=== PATIENT | female | born 1960 | race Caucasian/White ===

== ENCOUNTER 2016-11-10 08:55 | Inpatient (IN) | payer MEDICAID, OTHER ==
[~2016-11-10] VITALS: Ht 157.5 cm; Wt 60.4 kg
[~2016-11-10 08:55] MED LIST: DIVA500T52 PO; DOXE100C4 PO; MULT-71 PO; RISP4 PO; TRAZ-147 PO
[2016-11-10] MEDS ORDERED: ATOR40TA71 PO (09:10)
[2016-11-10] MEDS ORDERED: RISP2TAB76 PO (09:10)
[2016-11-10] MEDS ORDERED: LEVO25TA9 PO (09:10)
[2016-11-10 09:36] LABS: BASOPHILS % (AUTO) 0.3 % (0.0-2.0); EOSINOPHILS % (AUTO) 0.4 % (1.0-6.0); HEMATOCRIT 39.9 % (36-46); HEMOGLOBIN 13.5 g/dL (12.0-16.0); LYMPHOCYTES # (AUTO) 1.9 K/uL (1.0-4.8); LYMPHOCYTES % (AUTO) 14.9 % (22.0-44.0); MEAN CORPUSCULAR HEMOGLOBIN 31.2 pg (26.0-34.0); MEAN CORPUSCULAR HGB CONC 33.8 G/dL (31.0-37.0); MEAN CORPUSCULAR VOLUME 92 fL (80-100); MONOCYTES # (AUTO) 0.5 K/uL (0.1-1.0); MONOCYTES % (AUTO) 3.6 % (2.0-9.0); NEUTROPHILS # (AUTO) 10.5 K/uL (1.8-7.7); NEUTROPHILS % (AUTO) 80.8 % (40.0-70.0); PLATELET COUNT (AUTO) 332 K/uL (150-450); RED BLOOD CELL COUNT(AUTO) 4.33 MIL/uL (4.00-5.20); RED CELL DISTRIBUTION WIDTH 13.1 % (11.5-14.5); WHITE BLOOD COUNT (AUTO) 13.1 K/uL (4.5-11.0)
[2016-11-10] MEDS ORDERED: LORazepam 2 MG TABLET PO ONE (09:45)
[2016-11-10] MEDS ORDERED: DiphenhydrAMINE HCL 25 MG CAPSULE PO ONE (09:45)
[2016-11-10] MEDS ORDERED: HALOPERIDOL 5 MG TABLET PO ONE (09:45)
[2016-11-10 09:48] LABS: ANION GAP 15 mmol/L (8-16); CALCIUM, TOTAL 9.2 mg/dL (8.8-10.5); CARBON DIOXIDE 22 mmol/L (22-29); CHLORIDE 96 mmol/L (98-107); CREATININE 1.13 mg/dL (0.60-1.30); GLOMERULAR FILTR. RATE CALC 50 mL/min (>60); POTASSIUM 3.3 mmol/L (3.5-5.1); SODIUM SERUM 133 mmol/L (136-145); UREA NITROGEN, BLOOD 19 mg/dL (7-18)
[2016-11-10 09:53] LABS: ALANINE AMINOTRANSFERASE 46 U/L (12-78); ALBUMIN 3.7 g/dL (3.4-5.0); ASPARTATE AMINOTRANSFERASE 34 U/L (15-37); BILIRUBIN,TOTAL 0.4 mg/dL (0.1-1.0); TOTAL PROTEIN, SERUM 8.2 g/dL (6.4-8.2)
[2016-11-10 09:55] LABS: GLUCOSE,POINT OF CARE 196 MG/DL (70-110)
[2016-11-10 11:45] VITALS: BP 143/101
[2016-11-10] MEDS ORDERED: POTASSIUM CHLORIDE 20 MEQ ER TABLET PO ONE (12:00)
[2016-11-10 13:28] VITALS: BP 123/66
[2016-11-10] MEDS ORDERED: INFLUENZA VIRUS VACCINE QVS 2016-17 (3YR+)/PF 60 MCG/0.5 ML SYRINGE IM ONE (13:45)
[2016-11-10 16:10] VITALS: BP 116/56
[2016-11-10] MEDS ORDERED: ZOLPIDEM TARTRATE 10 MG TABLET PO PRN (18:45)
[2016-11-10] MEDS ORDERED: HALOPERIDOL 5 MG TABLET PO PRN (18:45)
[2016-11-10] MEDS ORDERED: LORazepam 2 MG TABLET PO PRN (18:45)
[2016-11-11 06:37] VITALS: BP_SYST 103; BP_SYST 136; BP_DIAS 60; BP_DIAS 89
[2016-11-11] MEDS ORDERED: ACETAMINOPHEN 325 MG TABLET PO PRN (07:30)
[2016-11-11] MEDS ORDERED: IBUPROFEN 400 MG TABLET PO PRN (07:30)
[2016-11-11] MEDS: LEVOTHYROXINE SODIUM 25 MCG TABLET PO SCH (07:31)
[2016-11-11 08:20] VITALS: BP 139/79
[2016-11-11] MEDS: BENZTROPINE MESYLATE 0.5 MG TABLET PO SCH ×2 (09:00→17:00)
[2016-11-11] MEDS: HALOPERIDOL 5 MG TABLET PO SCH ×2 (09:00→17:00)
[2016-11-11 12:22] LABS: GLUCOSE,POINT OF CARE 111 MG/DL (70-110)
[2016-11-11] MEDS: AmLODIPine BESYLATE 2.5 MG TABLET PO SCH (12:40)
[2016-11-11 16:12] VITALS: BP 120/66
[2016-11-11] MEDS: ATORVASTATIN CALCIUM 40 MG TABLET PO SCH (21:00)
[2016-11-12] MEDS: LEVOTHYROXINE SODIUM 25 MCG TABLET PO SCH (06:30)
[2016-11-12 06:45] VITALS: BP 146/88
[2016-11-12 08:08] VITALS: BP 116/58
[2016-11-12] MEDS: AmLODIPine BESYLATE 2.5 MG TABLET PO SCH (09:00)
[2016-11-12] MEDS: BENZTROPINE MESYLATE 0.5 MG TABLET PO SCH ×2 (09:00→17:00)
[2016-11-12] MEDS: HALOPERIDOL 5 MG TABLET PO SCH ×2 (09:00→17:00)
[2016-11-12 16:57] VITALS: BP 146/82
[2016-11-12] MEDS: ATORVASTATIN CALCIUM 40 MG TABLET PO SCH (20:52)
[2016-11-13] MEDS: LEVOTHYROXINE SODIUM 25 MCG TABLET PO SCH (06:30)
[2016-11-13 07:23] VITALS: BP 132/86
[2016-11-13 08:10] VITALS: BP 158/85
[2016-11-13] MEDS: AmLODIPine BESYLATE 2.5 MG TABLET PO SCH (08:52)
[2016-11-13] MEDS: BENZTROPINE MESYLATE 0.5 MG TABLET PO SCH ×2 (08:52→17:00)
[2016-11-13] MEDS: HALOPERIDOL 5 MG TABLET PO SCH ×2 (08:52→17:00)
[2016-11-13] MEDS: ATORVASTATIN CALCIUM 40 MG TABLET PO SCH (21:00)
[2016-11-14] MEDS: LEVOTHYROXINE SODIUM 25 MCG TABLET PO SCH (06:30)
[2016-11-14] MEDS: HALOPERIDOL 5 MG TABLET PO SCH ×2 (09:00→17:00)
[2016-11-14] MEDS: AmLODIPine BESYLATE 2.5 MG TABLET PO SCH (09:00)
[2016-11-14] MEDS: BENZTROPINE MESYLATE 0.5 MG TABLET PO SCH ×2 (09:00→17:00)
[2016-11-14 16:10] VITALS: BP 128/86
[2016-11-14] MEDS: ATORVASTATIN CALCIUM 40 MG TABLET PO SCH (21:00)
[2016-11-15] MEDS: LEVOTHYROXINE SODIUM 25 MCG TABLET PO SCH (06:23)
[2016-11-15] MEDS: HALOPERIDOL 5 MG TABLET PO SCH ×3 (08:25→16:49)
[2016-11-15] MEDS: BENZTROPINE MESYLATE 0.5 MG TABLET PO SCH ×2 (08:25→16:54)
[2016-11-15] MEDS: AmLODIPine BESYLATE 2.5 MG TABLET PO SCH (08:25)
[2016-11-15 16:14] VITALS: BP 121/62
[2016-11-15] MEDS: ATORVASTATIN CALCIUM 40 MG TABLET PO SCH (20:23)
[2016-11-16] MEDS: LEVOTHYROXINE SODIUM 25 MCG TABLET PO SCH (06:30)
[2016-11-16] MEDS: AmLODIPine BESYLATE 2.5 MG TABLET PO SCH (09:00)
[2016-11-16] MEDS: HALOPERIDOL 5 MG TABLET PO SCH (09:03)
[2016-11-16] MEDS ORDERED: AMLO2.5T PO (12:58)
[2016-11-16] MEDS ORDERED: HALO5 PO (12:58)
== END 2016-11-16 15:10 | disposition home or self-care (01) | DRG 750 ==
LOC: EMS 08:57 → B3A 09:55
PROVIDERS: ADMIT Psychiatry & Neurology Psychiatry; ATTEND Psychiatry & Neurology Psychiatry
DX: F20.0 Paranoid schizophrenia (principal); E87.1 Hypo-osmolality and hyponatremia; F32.9 Major depressive disorder, single episode, unspecified; E78.5 Hyperlipidemia, unspecified; E03.9 Hypothyroidism, unspecified; D72.829 Elevated white blood cell count, unspecified; Z28.21 Immunization not carried out because of patient refusal; Z91.14 Patient's other noncompliance with medication regimen; Z79.899 Other long term (current) drug therapy
CPT/HCPCS: 82962; 99285; G0480

== ENCOUNTER 2017-04-07 08:09 | Emergency (ER) | payer MEDICAID, OTHER ==
[~2017-04-07] VITALS: Ht 157.5 cm; Wt 57.7 kg
[~2017-04-07 08:09] MED LIST changes: +AMLO2.5T PO; +ATOR40TA71 PO; -DIVA500T52 PO; -DOXE100C4 PO; +HALO5 PO; +LEVO25TA9 PO; -MULT-71 PO; -RISP4 PO; -TRAZ-147 PO
[2017-04-07 08:15] VITALS: BP 150/102
[2017-04-07] MEDS ORDERED: HydrOXYzine PAMOATE 50 MG CAPSULE PO ONE (08:30)
[2017-04-07] MEDS ORDERED: BACITRACIN 0.9 GM PACKET OINTMENT TP ONE (08:30)
== END 2017-04-07 08:45 | disposition home or self-care (01) ==
LOC: EMS 08:10
DX: S00.211A Abrasion of right eyelid and periocular area, initial encounter (principal); F20.9 Schizophrenia, unspecified; E78.00 Pure hypercholesterolemia, unspecified; F32.9 Major depressive disorder, single episode, unspecified; W19.XXXA Unspecified fall, initial encounter; Y93.89 Activity, other specified; Y92.89 Other specified places as the place of occurrence of the external cause; Y99.8 Other external cause status
CPT/HCPCS: 99283

== ENCOUNTER 2021-11-10 11:06 | Inpatient (IN) | payer OTHER ==
[~2021-11-10] VITALS: Ht 147.3 cm; Wt 90.4 kg
[2021-11-10 12:51] LABS: COVID AG,FIA SOURCE NASAL SWAB
[2021-11-10 13:46] LABS: BASOPHILS % (AUTO) 0.7 % (0.0-2.0); EOSINOPHILS % (AUTO) 0.4 % (1.0-6.0); HEMATOCRIT 42.7 % (36-46); HEMOGLOBIN 14.8 g/dL (12.0-16.0); LYMPHOCYTES # (AUTO) 0.9 K/uL (1.0-4.8); LYMPHOCYTES % (AUTO) 9.5 % (22.0-44.0); MEAN CORPUSCULAR HEMOGLOBIN 31.4 pg (26.0-34.0); MEAN CORPUSCULAR HGB CONC 34.8 G/dL (31.0-37.0); MEAN CORPUSCULAR VOLUME 90 fL (80-100); MONOCYTES % (AUTO) 10.3 % (2.0-9.0); NEUTROPHILS # (AUTO) 7.4 K/uL (1.8-7.7); NEUTROPHILS % (AUTO) 79.1 % (40.0-70.0); PLATELET COUNT (AUTO) 330 K/uL (150-450); RED BLOOD CELL COUNT(AUTO) 4.73 MIL/uL (4.00-5.20); RED CELL DISTRIBUTION WIDTH 13.3 % (11.5-14.5)
[2021-11-10 14:16] LABS: ANION GAP 10 mmol/L (8-16); CALCIUM, TOTAL 8.5 mg/dL (8.8-10.5); CARBON DIOXIDE 31 mmol/L (22-29); CHLORIDE 97 mmol/L (98-107); CREATININE 0.97 mg/dL (0.60-1.30); GLOMERULAR FILTR. RATE CALC 58 mL/min (>60); GLUCOSE,RANDOM 237 mg/dL (70-110); POTASSIUM 3.3 mmol/L (3.5-5.1); SODIUM SERUM 138 mmol/L (136-145); UREA NITROGEN, BLOOD 8 mg/dL (7-18)
[2021-11-10 14:18] LABS: ABG CARBOXYHEMOGLOBIN 0.8 % (0.0-1.5); ABG METHEMOGLOBIN 0.3 % (0.0-1.5); SOURCE, BLOOD GAS ARTERIAL; TEMPERATURE, FAHRENHEIT, BG 98.6 FAHREN (96.0-98.6)
[2021-11-10 14:20] LABS: ABG BASE EXCESS 3.9 mmol/L (-2.0-3.0); ABG HCO3 28.2 mmol/L (22.0-26.0); ABG OXYGEN CONTENT 17.8 mL/dL (15.0-23.0); ABG OXYGEN SATURATION 95.6 % (95.0-98.0); ABG OXYHEMOGLOBIN 94.5 % (94.0-100.0); ABG PCO2 33 mmHg (35-45); ABG PH 7.524 (7.35-7.450); ABG TOTAL HEMOGLOBIN 13.4 G/dL (12.0-18.0); PO2, ARTERIAL BG 73.1 mmHg (79.0-87.0)
[2021-11-10 14:21] LABS: ALANINE AMINOTRANSFERASE 33 U/L (12-78); ALKALINE PHOSPHATASE 94 U/L (46-116); ASPARTATE AMINOTRANSFERASE 61 U/L (15-37); BILIRUBIN,TOTAL 0.4 mg/dL (0.1-1.0); TOTAL PROTEIN, SERUM 7.6 g/dL (6.4-8.2)
[2021-11-10 14:24] LABS: O2 DEVICE,BLOOD GAS CANNULA (ROOM AIR); SITE, BLOOD GAS LFT RADIAL
[2021-11-10] MEDS ORDERED: DEXAMETHASONE SOD PHOS 4 MG/ML 5 ML VIAL IVP ONE (14:30)
[2021-11-10] MEDS ORDERED: POTASSIUM CHLORIDE 10% 40 MEQ/30 ML LIQUID UDCUP PO ONE (14:30)
[2021-11-10] MEDS ORDERED: REMDESIVIR 200 MG in SODIUM CHLORIDE 0.9% 250 ML IV ONE (15:00)
[2021-11-10 15:14] LABS: D-DIMER 0.61 mg/L FEU (0.00-0.50); PROTHROMBIN TIME 10.2 SEC (9.4-11.6)
[2021-11-10 15:26] LABS: B-TYPE NATRIURETIC PEPTIDE 55 pg/mL (0-100)
[2021-11-10 15:36] LABS: INFLUENZA TYPE A NEGATIVE FOR TYPE A (NEGATIVE); INFLUENZA TYPE B NEGATIVE FOR TYPE B (NEGATIVE)
[2021-11-10 15:42] LABS: C-REACTIVE PROTEIN QUANT 8.24 mg/dL (0.00-0.30); FERRITIN 1825 ng/mL (8-252); LACTATE DEHYDROGENASE 587 U/L (81-234); LIPASE 85 U/L (73-393); THYROID STIMULATING HORMONE 3.22 uIU/mL (0.36-3.74)
[2021-11-10] MEDS ORDERED: ACETAMINOPHEN 325 MG TABLET PO PRN (16:15)
[2021-11-10] MEDS ORDERED: DEXTROSE 50%-WATER 25 GM/50 ML SYRINGE IVP PRN (16:15)
[2021-11-10] MEDS ORDERED: ONDANSETRON HCL 4 MG/2 ML VIAL IVP PRN (16:15)
[2021-11-10] MEDS ORDERED: MAGNESIUM SULFATE 4 GM/WATER 100 ML IV PRN (16:15)
[2021-11-10] MEDS ORDERED: MAGNESIUM SULFATE 2 GM/WATER 50 ML IV PRN (16:15)
[2021-11-10] MEDS ORDERED: MAGNESIUM OXIDE 400 MG TABLET PO PRN (16:15)
[2021-11-10] MEDS ORDERED: SODIUM CHLORIDE 0.9% 1,000 ML IV ONE (16:15)
[2021-11-10] MEDS ORDERED: ALBUTEROL SULFATE HFA 90 MCG/PUFF 8 GM INHALER IH PRN (16:30)
[2021-11-10] MEDS ORDERED: BENZONATATE 100 MG CAPSULE PO PRN (16:30)
[2021-11-10] MEDS: OXYGEN THERAPY IH SCH (19:48)
[2021-11-10] MEDS: FAMOTIDINE 20 MG TABLET PO SCH (20:01)
[2021-11-10] MEDS: DOCUSATE SODIUM 100 MG CAPSULE PO SCH (20:02)
[2021-11-10] MEDS: OxyCODONE HCL/ACETAMINOPHEN 5-325 MG TABLET PO PRN (20:02)
[2021-11-10] MEDS: HEPARIN SODIUM,PORCINE 5,000 UNITS/ML VIAL SQ SCH (23:48)
[2021-11-10] MEDS: ZOLPIDEM TARTRATE 5 MG TABLET PO PRN (23:48)
[2021-11-11 05:11] LABS: APPEARANCE,URINE CLEAR (CLEAR); BILIRUBIN,URINE NEGATIVE (NEGATIVE); GLUCOSE, URINE (UA) >=1000 mg/dL (NEGATIVE); KETONES,URINE 40 mg/dL (NEGATIVE); LEUKOCYTE ESTERASE ,URINE NEGATIVE (NEGATIVE); NITRATE,URINE NEGATIVE (NEGATIVE); OCCULT BLOOD,URINE TRACE (NEGATIVE); PROTEIN,URINE POS 1+ (NEGATIVE)
[2021-11-11 05:16] LABS: AMPHET/METH SCREEN,URINE NEGATIVE (NEGATIVE); BARBITURATE SCREEN, URINE NEGATIVE (NEGATIVE); BENZODIAZEPINES SCREEN,URINE NEGATIVE (NEGATIVE); CANNABINOID SCREEN,URINE NEGATIVE (NEGATIVE); COCAINE SCREEN,URINE NEGATIVE (NEGATIVE); METHADONE SCREEN, URINE NEGATIVE (NEGATIVE); OPIATE SCREEN,URINE NEGATIVE (NEGATIVE)
[2021-11-11 05:17] LABS: BACTERIA,URINE Rare /HPF (None Seen); PHENCYCLIDINE SCREEN,URINE NEGATIVE (NEGATIVE); WBC,URINE 0-2 /HPF (0-5)
[2021-11-11] MEDS: INSULIN LISPRO 100 UNITS/ML SQ PRN ×3 (07:07→21:53)
[2021-11-11 07:59] LABS: ALANINE AMINOTRANSFERASE 33 U/L (12-78); ALBUMIN 2.7 g/dL (3.4-5.0); ALKALINE PHOSPHATASE 88 U/L (46-116); ANION GAP 11 mmol/L (8-16); ASPARTATE AMINOTRANSFERASE 82 U/L (15-37); BILIRUBIN,TOTAL 0.4 mg/dL (0.1-1.0); CALCIUM, TOTAL 7.7 mg/dL (8.8-10.5); CARBON DIOXIDE 25 mmol/L (22-29); CHLORIDE 104 mmol/L (98-107); CREATININE 0.91 mg/dL (0.60-1.30); GLOMERULAR FILTR. RATE CALC > 60 mL/min (>60); GLUCOSE,RANDOM 237 mg/dL (70-110); POTASSIUM 3.8 mmol/L (3.5-5.1); SODIUM SERUM 140 mmol/L (136-145); UREA NITROGEN, BLOOD 12 mg/dL (7-18)
[2021-11-11] MEDS: OXYGEN THERAPY IH SCH ×2 (08:15→20:00)
[2021-11-11] MEDS: HEPARIN SODIUM,PORCINE 5,000 UNITS/ML VIAL SQ SCH ×2 (08:16→17:34)
[2021-11-11] MEDS: DEXAMETHASONE SOD PHOS 4 MG/ML VIAL IVP SCH (08:33)
[2021-11-11] MEDS: DOCUSATE SODIUM 100 MG CAPSULE PO SCH ×2 (08:35→21:52)
[2021-11-11] MEDS: FAMOTIDINE 20 MG TABLET PO SCH ×2 (08:36→21:52)
[2021-11-11] MEDS ORDERED: CloNIDine HCL 0.1 MG TABLET PO PRN (14:15)
[2021-11-11] MEDS: AmLODIPine BESYLATE 5 MG TABLET PO SCH (15:17)
[2021-11-11 16:47] VITALS: BP 157/77
[2021-11-11] MEDS ORDERED: REMDESIVIR 100 MG in SODIUM CHLORIDE 0.9% 250 ML IV SCH (17:00)
[2021-11-11] MEDS ORDERED: SODIUM CHLORIDE 0.9% 500 ML IV ONE (17:37)
[2021-11-11] MEDS: REMDESIVIR 100 MG in SODIUM CHLORIDE 0.9% 250 ML IV SCH (17:39)
[2021-11-11] MEDS ORDERED: PNEUMOCOCCAL VACCINE POLYVALENT 0.5 ML VIAL [PPSV23] IM. ONE (19:45)
[2021-11-11] MEDS ORDERED: INFLUENZA VIRUS VACCINE QVS 2021-22 (6MO+)/PF 60 MCG/0.5 ML SYRINGE IM. ONE (19:45)
[2021-11-11 20:14] VITALS: BP 111/77
[2021-11-11 20:31] LABS: GLUCOMETER DEV NAME(LOC) 5S.2B; GLUCOSE,POINT OF CARE 267 MG/DL (70-110)
[2021-11-11 22:37] LABS: GLUCOMETER DEV NAME(LOC) 5S.2B; GLUCOSE,POINT OF CARE 194 MG/DL (70-110)
[2021-11-12] VITALS (7 sets, daily range): BP systolic 103–172; BP diastolic 54–83
[2021-11-12] MEDS: INSULIN LISPRO 100 UNITS/ML SQ PRN ×4 (06:24→21:41)
[2021-11-12 06:26] LABS: GLUCOMETER DEV NAME(LOC) 5S.2B; GLUCOSE,POINT OF CARE 159 MG/DL (70-110)
[2021-11-12] MEDS: AmLODIPine BESYLATE 5 MG TABLET PO SCH (09:00)
[2021-11-12 09:08] LABS: BILIRUBIN,TOTAL 0.4 mg/dL (0.1-1.0); CREATININE 1.01 mg/dL (0.60-1.30); POTASSIUM 3.7 mmol/L (3.5-5.1); TOTAL PROTEIN, SERUM 7.7 g/dL (6.4-8.2)
[2021-11-12] MEDS: DEXAMETHASONE SOD PHOS 4 MG/ML VIAL IVP SCH (09:18)
[2021-11-12] MEDS: DOCUSATE SODIUM 100 MG CAPSULE PO SCH ×2 (09:18→21:39)
[2021-11-12] MEDS: FAMOTIDINE 20 MG TABLET PO SCH ×2 (09:18→21:39)
[2021-11-12] MEDS: HEPARIN SODIUM,PORCINE 5,000 UNITS/ML VIAL SQ SCH ×4 (09:18→23:46)
[2021-11-12] MEDS: OXYGEN THERAPY IH SCH ×2 (09:18→20:00)
[2021-11-12] MEDS: REMDESIVIR 100 MG in SODIUM CHLORIDE 0.9% 250 ML IV SCH (17:17)
[2021-11-12 18:02] LABS: GLUCOMETER DEV NAME(LOC) 5S.2B; GLUCOSE,POINT OF CARE 197 MG/DL (70-110)
[2021-11-12 18:17] LABS: GLUCOMETER DEV NAME(LOC) 5S.1; GLUCOSE,POINT OF CARE 177 MG/DL (70-110)
[2021-11-13] VITALS (7 sets, daily range): BP systolic 126–155; BP diastolic 56–96
[2021-11-13] MEDS: INSULIN LISPRO 100 UNITS/ML SQ PRN ×3 (05:58→17:44)
[2021-11-13 06:39] LABS: ALANINE AMINOTRANSFERASE 44 U/L (12-78); ALKALINE PHOSPHATASE 87 U/L (46-116); ANION GAP 8 mmol/L (8-16); ASPARTATE AMINOTRANSFERASE 56 U/L (15-37); BILIRUBIN,TOTAL 0.5 mg/dL (0.1-1.0); CALCIUM, TOTAL 8.8 mg/dL (8.8-10.5); CARBON DIOXIDE 28 mmol/L (22-29); CHLORIDE 105 mmol/L (98-107); CREATININE 0.92 mg/dL (0.60-1.30); GLOMERULAR FILTR. RATE CALC > 60 mL/min (>60); GLUCOSE,RANDOM 154 mg/dL (70-110); POTASSIUM 3.8 mmol/L (3.5-5.1); SODIUM SERUM 141 mmol/L (136-145); TOTAL PROTEIN, SERUM 7.3 g/dL (6.4-8.2); UREA NITROGEN, BLOOD 30 mg/dL (7-18)
[2021-11-13 07:41] LABS: GLUCOMETER DEV NAME(LOC) 5S.2B; GLUCOSE,POINT OF CARE 150 MG/DL (70-110)
[2021-11-13 07:41] LABS: GLUCOMETER DEV NAME(LOC) 5S.1; GLUCOSE,POINT OF CARE 165 MG/DL (70-110)
[2021-11-13] MEDS: OXYGEN THERAPY IH SCH ×2 (07:57→20:18)
[2021-11-13] MEDS: HEPARIN SODIUM,PORCINE 5,000 UNITS/ML VIAL SQ SCH ×3 (07:58→23:31)
[2021-11-13] MEDS: FAMOTIDINE 20 MG TABLET PO SCH ×2 (07:58→20:11)
[2021-11-13] MEDS: DOCUSATE SODIUM 100 MG CAPSULE PO SCH ×2 (07:58→20:11)
[2021-11-13] MEDS: AmLODIPine BESYLATE 5 MG TABLET PO SCH ×2 (07:58→08:44)
[2021-11-13] MEDS: DEXAMETHASONE SOD PHOS 4 MG/ML VIAL IVP SCH (07:59)
[2021-11-13] MEDS: QUEtiapine FUMARATE 25 MG TABLET PO SCH ×2 (13:17→20:11)
[2021-11-13] MEDS: REMDESIVIR 100 MG in SODIUM CHLORIDE 0.9% 250 ML IV SCH (16:19)
[2021-11-13] MEDS: ZOLPIDEM TARTRATE 5 MG TABLET PO PRN (20:11)
[2021-11-13] MEDS: OxyCODONE HCL/ACETAMINOPHEN 5-325 MG TABLET PO PRN (20:11)
[2021-11-13 21:10] LABS: GLUCOMETER DEV NAME(LOC) 5S.1; GLUCOSE,POINT OF CARE 221 MG/DL (70-110)
[2021-11-14 05:10] VITALS: BP 127/90
[2021-11-14 06:16] LABS: GLUCOMETER DEV NAME(LOC) 5S.1; GLUCOSE,POINT OF CARE 151 MG/DL (70-110)
[2021-11-14] MEDS: INSULIN LISPRO 100 UNITS/ML SQ PRN ×3 (06:23→17:29)
[2021-11-14 07:50] VITALS: BP 141/91
[2021-11-14] MEDS: OXYGEN THERAPY IH SCH ×2 (09:02→21:14)
[2021-11-14] MEDS: HEPARIN SODIUM,PORCINE 5,000 UNITS/ML VIAL SQ SCH ×2 (09:02→16:11)
[2021-11-14] MEDS: FAMOTIDINE 20 MG TABLET PO SCH ×2 (09:03→21:01)
[2021-11-14] MEDS: AmLODIPine BESYLATE 5 MG TABLET PO SCH (09:03)
[2021-11-14] MEDS: QUEtiapine FUMARATE 25 MG TABLET PO SCH ×2 (09:03→21:01)
[2021-11-14] MEDS: DOCUSATE SODIUM 100 MG CAPSULE PO SCH ×2 (09:03→21:01)
[2021-11-14] MEDS: DEXAMETHASONE SOD PHOS 4 MG/ML VIAL IVP SCH (10:09)
[2021-11-14 10:26] LABS: ALANINE AMINOTRANSFERASE 47 U/L (12-78); ALBUMIN 3.1 g/dL (3.4-5.0); ALKALINE PHOSPHATASE 84 U/L (46-116); ANION GAP 11 mmol/L (8-16); ASPARTATE AMINOTRANSFERASE 55 U/L (15-37); BILIRUBIN,TOTAL 0.8 mg/dL (0.1-1.0); CALCIUM, TOTAL 8.8 mg/dL (8.8-10.5); CARBON DIOXIDE 27 mmol/L (22-29); CHLORIDE 104 mmol/L (98-107); CREATININE 0.82 mg/dL (0.60-1.30); GLOMERULAR FILTR. RATE CALC > 60 mL/min (>60); GLUCOSE,RANDOM 162 mg/dL (70-110); SODIUM SERUM 142 mmol/L (136-145); TOTAL PROTEIN, SERUM 7.3 g/dL (6.4-8.2); UREA NITROGEN, BLOOD 25 mg/dL (7-18)
[2021-11-14 11:43] VITALS: BP 150/97
[2021-11-14] MEDS: POTASSIUM CHLORIDE 20 MEQ ER TABLET PO PRN ×2 (11:55→21:03)
[2021-11-14 15:51] VITALS: BP 133/55
[2021-11-14] MEDS: REMDESIVIR 100 MG in SODIUM CHLORIDE 0.9% 250 ML IV SCH (16:11)
[2021-11-14 19:59] VITALS: BP 157/82
[2021-11-14 20:16] LABS: GLUCOMETER DEV NAME(LOC) 5S.1; GLUCOSE,POINT OF CARE 194 MG/DL (70-110)
[2021-11-14 22:21] LABS: GLUCOMETER DEV NAME(LOC) 5S.2B; GLUCOSE,POINT OF CARE 140 MG/DL (70-110)
[2021-11-14 22:21] LABS: GLUCOMETER DEV NAME(LOC) 5S.2B; GLUCOSE,POINT OF CARE 166 MG/DL (70-110)
[2021-11-15 00:15] VITALS: BP 143/95
[2021-11-15] MEDS: HEPARIN SODIUM,PORCINE 5,000 UNITS/ML VIAL SQ SCH ×4 (00:19→23:52)
[2021-11-15 04:10] VITALS: BP 142/91
[2021-11-15 07:18] VITALS: BP 153/88
[2021-11-15] MEDS: QUEtiapine FUMARATE 25 MG TABLET PO SCH ×3 (09:00→20:37)
[2021-11-15] MEDS: DOCUSATE SODIUM 100 MG CAPSULE PO SCH ×3 (09:00→20:37)
[2021-11-15] MEDS: FAMOTIDINE 20 MG TABLET PO SCH ×3 (09:00→20:37)
[2021-11-15] MEDS: AmLODIPine BESYLATE 5 MG TABLET PO SCH ×2 (09:00→10:30)
[2021-11-15] MEDS: DEXAMETHASONE SOD PHOS 4 MG/ML VIAL IVP SCH ×2 (09:00→10:28)
[2021-11-15 09:29] LABS: BASOPHILS % (AUTO) 0.3 % (0.0-2.0); EOSINOPHILS % (AUTO) 0.1 % (1.0-6.0); HEMATOCRIT 40.8 % (36-46); HEMOGLOBIN 14.1 g/dL (12.0-16.0); LYMPHOCYTES # (AUTO) 0.7 K/uL (1.0-4.8); LYMPHOCYTES % (AUTO) 4.9 % (22.0-44.0); MEAN CORPUSCULAR HEMOGLOBIN 30.9 pg (26.0-34.0); MEAN CORPUSCULAR HGB CONC 34.4 G/dL (31.0-37.0); MEAN CORPUSCULAR VOLUME 90 fL (80-100); MONOCYTES % (AUTO) 7.2 % (2.0-9.0); NEUTROPHILS # (AUTO) 11.8 K/uL (1.8-7.7); PLATELET COUNT (AUTO) 602 K/uL (150-450); RED BLOOD CELL COUNT(AUTO) 4.54 MIL/uL (4.00-5.20); RED CELL DISTRIBUTION WIDTH 13.4 % (11.5-14.5)
[2021-11-15 09:30] LABS: NEUTROPHILS % (AUTO) 87.5 % (40.0-70.0)
[2021-11-15 09:37] LABS: ANION GAP 12 mmol/L (8-16); CALCIUM, TOTAL 8.8 mg/dL (8.8-10.5); CARBON DIOXIDE 25 mmol/L (22-29); CHLORIDE 104 mmol/L (98-107); CREATININE 0.86 mg/dL (0.60-1.30); GLOMERULAR FILTR. RATE CALC > 60 mL/min (>60); GLUCOSE,RANDOM 183 mg/dL (70-110); POTASSIUM 3.8 mmol/L (3.5-5.1); SODIUM SERUM 141 mmol/L (136-145); UREA NITROGEN, BLOOD 26 mg/dL (7-18)
[2021-11-15] MEDS: INSULIN LISPRO 100 UNITS/ML SQ PRN ×2 (12:20→20:38)
[2021-11-15 12:38] VITALS: BP 132/88
[2021-11-15] MEDS: OXYGEN THERAPY IH SCH ×2 (15:44→20:37)
[2021-11-15 16:35] VITALS: BP 153/75
[2021-11-15 18:12] LABS: GLUCOMETER DEV NAME(LOC) 5S.1; GLUCOSE,POINT OF CARE 199 MG/DL (70-110)
[2021-11-15 19:56] LABS: GLUCOMETER DEV NAME(LOC) 5S.2B; GLUCOSE,POINT OF CARE 139 MG/DL (70-110)
[2021-11-15 20:27] VITALS: BP 141/68
[2021-11-16 00:09] VITALS: BP 107/82
[2021-11-16 00:17] LABS: GLUCOMETER DEV NAME(LOC) 5S.1; GLUCOSE,POINT OF CARE 192 MG/DL (70-110)
[2021-11-16 05:24] VITALS: BP 118/89
[2021-11-16 07:55] VITALS: BP_SYST 122; BP_SYST 144; BP_DIAS 85
[2021-11-16] MEDS: OXYGEN THERAPY IH SCH ×2 (08:00→21:13)
[2021-11-16] MEDS: HEPARIN SODIUM,PORCINE 5,000 UNITS/ML VIAL SQ SCH ×3 (08:00→23:49)
[2021-11-16] MEDS: AmLODIPine BESYLATE 5 MG TABLET PO SCH (09:00)
[2021-11-16] MEDS: DOCUSATE SODIUM 100 MG CAPSULE PO SCH ×2 (09:00→21:11)
[2021-11-16] MEDS: QUEtiapine FUMARATE 25 MG TABLET PO SCH ×2 (09:00→21:12)
[2021-11-16] MEDS: FAMOTIDINE 20 MG TABLET PO SCH ×2 (09:00→21:12)
[2021-11-16] MEDS: DEXAMETHASONE SOD PHOS 4 MG/ML VIAL IVP SCH (09:00)
[2021-11-16 10:16] LABS: GLUCOMETER DEV NAME(LOC) 5S.1; GLUCOSE,POINT OF CARE 155 MG/DL (70-110)
[2021-11-16 11:37] VITALS: BP 128/98
[2021-11-16] MEDS ORDERED: HALOPERIDOL LACTATE 5 MG/ML VIAL IM PRN (13:15)
[2021-11-16 15:37] VITALS: BP 140/75
[2021-11-16] MEDS: DEXTROSE 5%-0.45% SODIUM CHL 1,000 ML IV SCH (16:37)
[2021-11-16 20:00] VITALS: BP 148/91
[2021-11-16] MEDS: INSULIN LISPRO 100 UNITS/ML SQ PRN (21:10)
[2021-11-16 21:11] LABS: GLUCOMETER DEV NAME(LOC) 5S.1; GLUCOSE,POINT OF CARE 170 MG/DL (70-110)
[2021-11-17] VITALS: BP 125/87
[2021-11-17 01:46] LABS: GLUCOMETER DEV NAME(LOC) 5S.2B; GLUCOSE,POINT OF CARE 196 MG/DL (70-110)
[2021-11-17 01:46] LABS: GLUCOMETER DEV NAME(LOC) 5S.2B; GLUCOSE,POINT OF CARE 193 MG/DL (70-110)
[2021-11-17 04:30] VITALS: BP 138/94
[2021-11-17] MEDS: INSULIN LISPRO 100 UNITS/ML SQ PRN ×4 (05:57→20:26)
[2021-11-17 07:36] LABS: GLUCOMETER DEV NAME(LOC) 5S.1; GLUCOSE,POINT OF CARE 187 MG/DL (70-110)
[2021-11-17 07:50] VITALS: BP 131/90
[2021-11-17] MEDS: HEPARIN SODIUM,PORCINE 5,000 UNITS/ML VIAL SQ SCH ×2 (07:53→16:22)
[2021-11-17] MEDS: DEXAMETHASONE SOD PHOS 4 MG/ML VIAL IVP SCH (08:03)
[2021-11-17] MEDS: OXYGEN THERAPY IH SCH ×2 (08:04→20:10)
[2021-11-17] MEDS: DEXTROSE 5%-0.45% SODIUM CHL 1,000 ML IV SCH (08:04)
[2021-11-17] MEDS: DOCUSATE SODIUM 100 MG CAPSULE PO SCH ×2 (08:04→20:10)
[2021-11-17] MEDS: AmLODIPine BESYLATE 5 MG TABLET PO SCH (08:05)
[2021-11-17] MEDS: QUEtiapine FUMARATE 25 MG TABLET PO SCH ×2 (08:05→20:11)
[2021-11-17] MEDS: FAMOTIDINE 20 MG TABLET PO SCH (08:05)
[2021-11-17] MEDS: PANTOPRAZOLE SODIUM 40 MG/VIAL IVP SCH (11:17)
[2021-11-17 11:55] VITALS: BP 161/101
[2021-11-17 15:48] VITALS: BP 135/98
[2021-11-17 20:00] VITALS: BP 153/102
[2021-11-17 21:51] LABS: GLUCOMETER DEV NAME(LOC) 5S.2B; GLUCOSE,POINT OF CARE 218 MG/DL (70-110)
[2021-11-17 21:51] LABS: GLUCOMETER DEV NAME(LOC) 5S.2B; GLUCOSE,POINT OF CARE 255 MG/DL (70-110)
[2021-11-17 22:17] LABS: GLUCOMETER DEV NAME(LOC) 5S.1; GLUCOSE,POINT OF CARE 191 MG/DL (70-110)
[2021-11-18] VITALS (7 sets, daily range): BP systolic 101–167; BP diastolic 56–105
[2021-11-18] MEDS ORDERED: HydrALAZINE HCL 20 MG/ML VIAL IVP PRN (00:15)
[2021-11-18] MEDS: HEPARIN SODIUM,PORCINE 5,000 UNITS/ML VIAL SQ SCH ×3 (00:33→17:34)
[2021-11-18] MEDS: DEXTROSE 5%-0.45% SODIUM CHL 1,000 ML IV SCH (00:34)
[2021-11-18 07:11] LABS: GLUCOMETER DEV NAME(LOC) 5S.2B; GLUCOSE,POINT OF CARE 137 MG/DL (70-110)
[2021-11-18] MEDS: OXYGEN THERAPY IH SCH ×2 (08:48→21:03)
[2021-11-18] MEDS: AmLODIPine BESYLATE 5 MG TABLET PO SCH (09:00)
[2021-11-18] MEDS: QUEtiapine FUMARATE 25 MG TABLET PO SCH ×2 (09:00→21:11)
[2021-11-18] MEDS: PANTOPRAZOLE SODIUM 40 MG/VIAL IVP SCH (09:00)
[2021-11-18] MEDS: DEXAMETHASONE SOD PHOS 4 MG/ML VIAL IVP SCH (09:00)
[2021-11-18] MEDS: DOCUSATE SODIUM 100 MG CAPSULE PO SCH ×2 (09:00→21:00)
[2021-11-18 10:17] LABS: ALANINE AMINOTRANSFERASE 37 U/L (12-78); ALBUMIN 2.7 g/dL (3.4-5.0); ALKALINE PHOSPHATASE 79 U/L (46-116); ANION GAP 7 mmol/L (8-16); ASPARTATE AMINOTRANSFERASE 34 U/L (15-37); BILIRUBIN,TOTAL 1.1 mg/dL (0.1-1.0); CALCIUM, TOTAL 8.9 mg/dL (8.8-10.5); CARBON DIOXIDE 29 mmol/L (22-29); CHLORIDE 108 mmol/L (98-107); CREATININE 0.93 mg/dL (0.60-1.30); GLOMERULAR FILTR. RATE CALC > 60 mL/min (>60); GLUCOSE,RANDOM 219 mg/dL (70-110); POTASSIUM 3.2 mmol/L (3.5-5.1); SODIUM SERUM 144 mmol/L (136-145); TOTAL PROTEIN, SERUM 7.3 g/dL (6.4-8.2); UREA NITROGEN, BLOOD 29 mg/dL (7-18)
[2021-11-18] MEDS: INSULIN LISPRO 100 UNITS/ML SQ PRN ×3 (12:41→21:06)
[2021-11-18 13:06] LABS: GLUCOMETER DEV NAME(LOC) 5S.1; GLUCOSE,POINT OF CARE 221 MG/DL (70-110)
[2021-11-18] MEDS ORDERED: VALB40CA2 PO (15:11)
[2021-11-18] MEDS ORDERED: TRAZ-186 PO (15:11)
[2021-11-18] MEDS ORDERED: OLAN10TA22 PO (15:11)
[2021-11-18] MEDS ORDERED: QUET200T PO (15:11)
[2021-11-18 20:06] LABS: GLUCOMETER DEV NAME(LOC) 5S.2B; GLUCOSE,POINT OF CARE 234 MG/DL (70-110)
[2021-11-18] MEDS: POTASSIUM CHL 10 MEQ/WATER 50 ML IV PRN ×2 (21:04→22:49)
[2021-11-18 21:56] LABS: GLUCOMETER DEV NAME(LOC) 5S.1; GLUCOSE,POINT OF CARE 210 MG/DL (70-110)
[2021-11-19] MEDS: HEPARIN SODIUM,PORCINE 5,000 UNITS/ML VIAL SQ SCH ×3 (00:17→15:00)
[2021-11-19] MEDS: DEXTROSE 5%-0.45% SODIUM CHL 1,000 ML IV SCH ×3 (00:18→18:03)
[2021-11-19] MEDS: POTASSIUM CHL 10 MEQ/WATER 50 ML IV PRN (00:19)
[2021-11-19 04:42] VITALS: BP 143/103
[2021-11-19] MEDS: INSULIN LISPRO 100 UNITS/ML SQ PRN ×4 (06:06→21:58)
[2021-11-19 07:02] LABS: GLUCOMETER DEV NAME(LOC) 5S.1; GLUCOSE,POINT OF CARE 160 MG/DL (70-110)
[2021-11-19 08:22] VITALS: BP 143/84
[2021-11-19] MEDS: OXYGEN THERAPY IH SCH ×2 (08:24→20:00)
[2021-11-19] MEDS: DOCUSATE SODIUM 100 MG CAPSULE PO SCH ×2 (08:26→21:00)
[2021-11-19] MEDS: PANTOPRAZOLE SODIUM 40 MG/VIAL IVP SCH (08:26)
[2021-11-19] MEDS: QUEtiapine FUMARATE 25 MG TABLET PO SCH ×2 (08:26→21:56)
[2021-11-19] MEDS: AmLODIPine BESYLATE 5 MG TABLET PO SCH (08:26)
[2021-11-19] MEDS: DEXAMETHASONE SOD PHOS 4 MG/ML VIAL IVP SCH (08:27)
[2021-11-19 12:01] VITALS: BP 140/77
[2021-11-19 12:41] LABS: GLUCOMETER DEV NAME(LOC) 5N.1C; GLUCOSE,POINT OF CARE 227 MG/DL (70-110)
[2021-11-19 16:01] VITALS: BP 129/92
[2021-11-19 20:13] VITALS: BP 135/74
[2021-11-19 21:07] LABS: GLUCOMETER DEV NAME(LOC) 5S.1; GLUCOSE,POINT OF CARE 238 MG/DL (70-110)
[2021-11-19 21:41] LABS: GLUCOMETER DEV NAME(LOC) 5N.3; GLUCOSE,POINT OF CARE 244 MG/DL (70-110)
[2021-11-20] MEDS: HEPARIN SODIUM,PORCINE 5,000 UNITS/ML VIAL SQ SCH ×3 (00:10→15:02)
[2021-11-20 02:49] VITALS: BP 129/79
[2021-11-20 05:29] VITALS: BP 124/85
[2021-11-20 06:40] LABS: GLUCOMETER DEV NAME(LOC) 5N.3; GLUCOSE,POINT OF CARE 123 MG/DL (70-110)
[2021-11-20 07:40] VITALS: BP 117/67
[2021-11-20] MEDS: DOCUSATE SODIUM 100 MG CAPSULE PO SCH ×2 (08:37→21:00)
[2021-11-20] MEDS: DEXAMETHASONE SOD PHOS 4 MG/ML VIAL IVP SCH (08:38)
[2021-11-20] MEDS: OxyCODONE HCL/ACETAMINOPHEN 5-325 MG TABLET PO PRN (08:38)
[2021-11-20] MEDS: QUEtiapine FUMARATE 25 MG TABLET PO SCH ×2 (08:38→21:19)
[2021-11-20] MEDS: AmLODIPine BESYLATE 5 MG TABLET PO SCH (08:38)
[2021-11-20] MEDS: PANTOPRAZOLE SODIUM 40 MG/VIAL IVP SCH (08:39)
[2021-11-20] MEDS: OXYGEN THERAPY IH SCH ×2 (08:40→20:00)
[2021-11-20] MEDS: INSULIN LISPRO 100 UNITS/ML SQ PRN ×3 (11:45→21:30)
[2021-11-20 11:51] LABS: POTASSIUM 3.2 mmol/L (3.5-5.1)
[2021-11-20 12:30] VITALS: BP 129/82
[2021-11-20 19:21] LABS: GLUCOMETER DEV NAME(LOC) 5S.1; GLUCOSE,POINT OF CARE 257 MG/DL (70-110)
[2021-11-20 19:56] LABS: GLUCOMETER DEV NAME(LOC) 5N.1C; GLUCOSE,POINT OF CARE 160 MG/DL (70-110)
[2021-11-20 20:03] VITALS: BP 132/75
[2021-11-20] MEDS: DEXTROSE 5%-0.45% SODIUM CHL 1,000 ML IV SCH (21:20)
[2021-11-20] MEDS: POTASSIUM CHLORIDE 20 MEQ ER TABLET PO PRN (21:43)
[2021-11-21] VITALS (7 sets, daily range): BP systolic 104–139; BP diastolic 69–89
[2021-11-21] MEDS: HEPARIN SODIUM,PORCINE 5,000 UNITS/ML VIAL SQ SCH ×4 (00:09→23:41)
[2021-11-21] MEDS: INSULIN LISPRO 100 UNITS/ML SQ PRN ×3 (06:30→17:54)
[2021-11-21 06:36] LABS: GLUCOMETER DEV NAME(LOC) 5N.3; GLUCOSE,POINT OF CARE 162 MG/DL (70-110)
[2021-11-21 06:36] LABS: GLUCOMETER DEV NAME(LOC) 5N.3; GLUCOSE,POINT OF CARE 202 MG/DL (70-110)
[2021-11-21] MEDS: QUEtiapine FUMARATE 25 MG TABLET PO SCH ×2 (08:01→20:42)
[2021-11-21] MEDS: DEXAMETHASONE SOD PHOS 4 MG/ML VIAL IVP SCH (08:01)
[2021-11-21] MEDS: AmLODIPine BESYLATE 5 MG TABLET PO SCH (08:01)
[2021-11-21] MEDS: PANTOPRAZOLE SODIUM 40 MG/VIAL IVP SCH (08:01)
[2021-11-21] MEDS: OXYGEN THERAPY IH SCH (08:01)
[2021-11-21] MEDS: DOCUSATE SODIUM 100 MG CAPSULE PO SCH ×2 (08:02→20:41)
[2021-11-21 11:36] LABS: GLUCOMETER DEV NAME(LOC) 5N.1C; GLUCOSE,POINT OF CARE 231 MG/DL (70-110)
[2021-11-21 11:45] LABS: BASOPHILS % (AUTO) 0.3 % (0.0-2.0); EOSINOPHILS % (AUTO) 0.1 % (1.0-6.0); HEMATOCRIT 42.8 % (36-46); HEMOGLOBIN 14.4 g/dL (12.0-16.0); LYMPHOCYTES # (AUTO) 0.6 K/uL (1.0-4.8); LYMPHOCYTES % (AUTO) 4.7 % (22.0-44.0); MEAN CORPUSCULAR HEMOGLOBIN 30.6 pg (26.0-34.0); MEAN CORPUSCULAR HGB CONC 33.7 G/dL (31.0-37.0); MEAN CORPUSCULAR VOLUME 91 fL (80-100); MONOCYTES # (AUTO) 0.8 K/uL (0.1-1.0); NEUTROPHILS # (AUTO) 11.5 K/uL (1.8-7.7); PLATELET COUNT (AUTO) 376 K/uL (150-450); RED CELL DISTRIBUTION WIDTH 13.4 % (11.5-14.5)
[2021-11-21 11:48] LABS: NEUTROPHILS % (AUTO) 88.9 % (40.0-70.0)
[2021-11-21] MEDS: POTASSIUM CHLORIDE 20 MEQ ER TABLET PO PRN (12:24)
[2021-11-21 18:06] LABS: GLUCOMETER DEV NAME(LOC) 5N.1C; GLUCOSE,POINT OF CARE 262 MG/DL (70-110)
[2021-11-22 05:05] VITALS: BP 139/68
[2021-11-22] MEDS: INSULIN LISPRO 100 UNITS/ML SQ PRN ×4 (06:44→21:26)
[2021-11-22 07:10] LABS: GLUCOMETER DEV NAME(LOC) 5N.1C; GLUCOSE,POINT OF CARE 132 MG/DL (70-110)
[2021-11-22 07:10] LABS: GLUCOMETER DEV NAME(LOC) 5N.1C; GLUCOSE,POINT OF CARE 219 MG/DL (70-110)
[2021-11-22 08:02] VITALS: BP 113/61
[2021-11-22] MEDS: DEXAMETHASONE SOD PHOS 4 MG/ML VIAL IVP SCH (08:23)
[2021-11-22] MEDS: QUEtiapine FUMARATE 25 MG TABLET PO SCH ×3 (08:24→21:25)
[2021-11-22] MEDS: AmLODIPine BESYLATE 5 MG TABLET PO SCH (08:24)
[2021-11-22] MEDS: DOCUSATE SODIUM 100 MG CAPSULE PO SCH ×3 (08:24→21:25)
[2021-11-22] MEDS: PANTOPRAZOLE SODIUM 40 MG/VIAL IVP SCH (08:24)
[2021-11-22] MEDS: HEPARIN SODIUM,PORCINE 5,000 UNITS/ML VIAL SQ SCH ×2 (08:24→16:05)
[2021-11-22] MEDS: OXYGEN THERAPY IH SCH ×2 (10:00→20:00)
[2021-11-22 11:30] VITALS: BP 97/59
[2021-11-22 15:51] VITALS: BP 105/49
[2021-11-22 19:39] VITALS: BP_SYST 120; BP_SYST 124; BP_DIAS 70; BP_DIAS 74
[2021-11-22 20:31] LABS: GLUCOMETER DEV NAME(LOC) 5N.1C; GLUCOSE,POINT OF CARE 300 MG/DL (70-110)
[2021-11-22 20:31] LABS: GLUCOMETER DEV NAME(LOC) 5N.1C; GLUCOSE,POINT OF CARE 239 MG/DL (70-110)
[2021-11-22 20:31] LABS: GLUCOMETER DEV NAME(LOC) 5N.1C; GLUCOSE,POINT OF CARE 202 MG/DL (70-110)
[2021-11-22 23:39] VITALS: BP 110/69
[2021-11-23] MEDS: HEPARIN SODIUM,PORCINE 5,000 UNITS/ML VIAL SQ SCH ×2 (00:11→08:40)
[2021-11-23 05:38] VITALS: BP 132/74
[2021-11-23 06:37] LABS: GLUCOMETER DEV NAME(LOC) 5N.1C; GLUCOSE,POINT OF CARE 138 MG/DL (70-110)
[2021-11-23 07:33] VITALS: BP 117/54
[2021-11-23] MEDS: OXYGEN THERAPY IH SCH (08:00)
[2021-11-23] MEDS: PANTOPRAZOLE SODIUM 40 MG/VIAL IVP SCH (08:39)
[2021-11-23] MEDS: DEXAMETHASONE SOD PHOS 4 MG/ML VIAL IVP SCH (08:39)
[2021-11-23] MEDS: AmLODIPine BESYLATE 5 MG TABLET PO SCH (08:40)
[2021-11-23] MEDS: DOCUSATE SODIUM 100 MG CAPSULE PO SCH (08:40)
[2021-11-23] MEDS: QUEtiapine FUMARATE 25 MG TABLET PO SCH (08:44)
[2021-11-23 11:48] VITALS: BP 113/57
[2021-11-23] MEDS: INSULIN LISPRO 100 UNITS/ML SQ PRN (11:49)
[2021-11-24 19:56] LABS: GLUCOMETER DEV NAME(LOC) 5N.3; GLUCOSE,POINT OF CARE 217 MG/DL (70-110)
== END 2021-11-23 16:20 | disposition home or self-care (01) | DRG 137 ==
LOC: EMS 11:11 → 5N 11-11 15:38
PROVIDERS: ADMIT Internal Medicine; ATTEND Internal Medicine
PROC: XW033E5 Introduction of Remdesivir Anti-infective into Peripheral Vein, Percutaneous Approach, New Technology Group 5 (ICD-10-PCS; principal; 2021-11-11)
DX: U07.1 COVID-19 (principal); J96.01 Acute respiratory failure with hypoxia; J12.82 Pneumonia due to coronavirus disease 2019; G93.41 Metabolic encephalopathy; E11.65 Type 2 diabetes mellitus with hyperglycemia; E78.5 Hyperlipidemia, unspecified; E66.9 Obesity, unspecified; E78.00 Pure hypercholesterolemia, unspecified; Z68.41 Body mass index [BMI] 40.0-44.9, adult; E87.6 Hypokalemia; E83.42 Hypomagnesemia; F20.9 Schizophrenia, unspecified; F41.9 Anxiety disorder, unspecified; F32.A Depression, unspecified; Z91.19 Patient's noncompliance with other medical treatment and regimen; Z59.00 Homelessness unspecified; Z79.4 Long term (current) use of insulin; Z83.3 Family history of diabetes mellitus
CPT/HCPCS: 36600; 71045; 80048; 80053; 81001; 82040; 82728; 82805; 82962; 83605; 83615; 83690; 83735; 83880; 84132; 84145; 84443; 84484; 85025; 85379; 85384; 85610; 85730; 86140; 87040; 87804; 92507; 92526; 92610; 93005; 99291; C9113; G0480; J0360; J1100; J1630; J1644; J1815; J3480; J7040; J7050; Q9967; 36415-L1; 36415-TC

== ENCOUNTER 2024-01-21 07:57 | Inpatient (IN) | payer MEDICAID, OTHER ==
[~2024-01-21] VITALS: Ht 157.5 cm; Wt 63.6 kg
[~2024-01-21 07:57] MED LIST changes: -AMLO2.5T PO; -ATOR40TA71 PO; -HALO5 PO; -LEVO25TA9 PO; +QUET200T PO
[2024-01-21 09:32] LABS: BASOPHILS % (AUTO) 0.3 % (0.0-2.0); EOSINOPHILS % (AUTO) 0 % (1.0-6.0); HEMATOCRIT 39.1 % (36-46); HEMOGLOBIN 13.4 g/dL (12.0-16.0); LYMPHOCYTES # (AUTO) 0.7 K/uL (1.0-4.8); LYMPHOCYTES % (AUTO) 6.7 % (22.0-44.0); MEAN CORPUSCULAR HEMOGLOBIN 32.1 pg (26.0-34.0); MEAN CORPUSCULAR HGB CONC 34.2 G/dL (31.0-37.0); MEAN CORPUSCULAR VOLUME 94 fL (80-100); MONOCYTES # (AUTO) 0.3 K/uL (0.1-1.0); MONOCYTES % (AUTO) 2.8 % (2.0-9.0); NEUTROPHILS # (AUTO) 9.6 K/uL (1.8-7.7); PLATELET COUNT (AUTO) 301 K/uL (150-450); RED BLOOD CELL COUNT(AUTO) 4.16 MIL/uL (4.00-5.20); WHITE BLOOD COUNT (AUTO) 10.6 K/uL (4.5-11.0)
[2024-01-21] MEDS: LORazepam 2 MG/ML VIAL IM ONE (09:32)
[2024-01-21] MEDS: HALOPERIDOL LACTATE 5 MG/ML VIAL IM ONE (09:32)
[2024-01-21] MEDS: DiphenhydrAMINE HCL 50 MG/ML VIAL IM ONE (09:33)
[2024-01-21 09:37] LABS: ANION GAP 8 mmol/L (8-16); CALCIUM, TOTAL 9.3 mg/dL (8.8-10.5); CARBON DIOXIDE 30 mmol/L (22-29); CHLORIDE 98 mmol/L (98-107); CREATININE 0.58 mg/dL (0.60-1.30); GLOMERULAR FILTR. RATE CALC > 60 mL/min (>60); GLUCOSE,RANDOM 166 mg/dL (70-110); NEUTROPHILS % (AUTO) 90.2 % (40.0-70.0); POTASSIUM 3.2 mmol/L (3.5-5.1); SODIUM SERUM 136 mmol/L (136-145); UREA NITROGEN, BLOOD 20 mg/dL (7-18)
[2024-01-21 09:41] LABS: ALCOHOL, BLOOD (SERUM) < 3 mg/dL (0-10)
[2024-01-21 09:43] LABS: ALANINE AMINOTRANSFERASE 24 U/L (12-78); ALBUMIN 3.8 g/dL (3.4-5.0); ALKALINE PHOSPHATASE 95 U/L (46-116); ASPARTATE AMINOTRANSFERASE 30 U/L (15-37); BILIRUBIN,TOTAL 0.5 mg/dL (0.1-1.0); TOTAL PROTEIN, SERUM 8.5 g/dL (6.4-8.2)
[2024-01-21 10:46] LABS: COVID AG,FIA SOURCE NASAL SWAB
[2024-01-21] MEDS ORDERED: HALOPERIDOL 5 MG TABLET PO PRN (11:15)
[2024-01-21] MEDS ORDERED: ZOLPIDEM TARTRATE 10 MG TABLET PO PRN (11:15)
[2024-01-21 11:24] LABS: SARS-COV2 (COVID) ANTIGEN,FIA Negative (Negative)
[2024-01-22 08:32] VITALS: BP 121/69; PULSE 69; RESP 16; TEMP 97.6; O2SAT 97
[2024-01-22] MEDS: LORazepam 2 MG TABLET PO PRN (09:04)
[2024-01-22] MEDS: POTASSIUM CHLORIDE 20 MEQ ER TABLET PO ONE (09:04)
[2024-01-22] MEDS ORDERED: ONDANSETRON HCL 4 MG TABLET PO PRN (16:00)
[2024-01-22] MEDS ORDERED: ALBUTEROL SULFATE HFA 90 MCG/PUFF 8 GM INHALER IH PRN (16:00)
[2024-01-22] MEDS ORDERED: GuaiFENesin/D-METHORPHAN [SUGAR-FREE] 200-20MG/10 ML SYRUP UDCUP PO PRN (16:00)
[2024-01-22] MEDS ORDERED: CloNIDine HCL 0.1 MG TABLET PO PRN (16:00)
[2024-01-22] MEDS ORDERED: ACETAMINOPHEN 325 MG TABLET PO PRN (16:00)
[2024-01-22] MEDS ORDERED: IBUPROFEN 400 MG TABLET PO PRN (16:00)
[2024-01-22] MEDS ORDERED: PETROLATUM,WHITE 28 GM JELLY TP PRN (16:00)
[2024-01-22] MEDS ORDERED: MAG HYDROX/ALUMINUM HYD/SIMETH ES 30 ML SUSPENSION UDCUP PO PRN (16:00)
[2024-01-22] MEDS ORDERED: DOCUSATE SODIUM 100 MG CAPSULE PO PRN (16:00)
[2024-01-22] MEDS ORDERED: MAGNESIUM HYDROXIDE SUSPENSION 30 ML UDCUP PO PRN (16:00)
[2024-01-22] MEDS ORDERED: NICOTINE 14 MG/24 HOUR PATCH TD PRN (16:00)
[2024-01-22] MEDS ORDERED: LOPERAMIDE HCL 2 MG CAPSULE PO PRN (16:00)
[2024-01-22] MEDS: RisperiDONE 0.5 MG TABLET PO SCH (16:36)
[2024-01-22 20:10] VITALS: BP 122/69; PULSE 90; RESP 18; TEMP 98.9; O2SAT 100
[2024-01-23 10:24] VITALS: BP 117/62; PULSE 89; RESP 17; TEMP 97.7; O2SAT 100
[2024-01-23] MEDS: POTASSIUM CHLORIDE 10 MEQ ER TABLET PO ONE (20:57)
[2024-01-23 21:45] VITALS: BP 154/78; PULSE 95; RESP 16; TEMP 98.2; O2SAT 100
[2024-01-24 08:23] VITALS: RESP 18
[2024-01-24 20:28] VITALS: BP 157/83; PULSE 79; RESP 18; TEMP 98.3; O2SAT 98
[2024-01-25 08:54] VITALS: BP 123/71; PULSE 79; RESP 16; TEMP 97.6; O2SAT 100
[2024-01-26 08:16] VITALS: BP 122/78; PULSE 78; RESP 16; TEMP 97.6; O2SAT 98
[2024-01-26] MEDS ORDERED: RISP0.5T39 PO (12:35)
== END 2024-01-26 15:50 | disposition home or self-care (01) | DRG 750 ==
LOC: EMS 07:57 → B3A 17:09
PROVIDERS: ADMIT Psychiatry & Neurology Child & Adolescent Psychiatry; ATTEND Psychiatry & Neurology Child & Adolescent Psychiatry
DX: F20.0 Paranoid schizophrenia (principal); D64.9 Anemia, unspecified; E87.6 Hypokalemia; Z20.822 Contact with and (suspected) exposure to COVID-19; Z59.00 Homelessness unspecified; F10.129 Alcohol abuse with intoxication, unspecified; D72.829 Elevated white blood cell count, unspecified; R73.9 Hyperglycemia, unspecified; E78.00 Pure hypercholesterolemia, unspecified; F32.A Depression, unspecified
CPT/HCPCS: 80053; 85025; 99285; G0480; J1200; J1630; J2060

== ENCOUNTER 2025-05-02 21:21 | Inpatient (IN) | payer MEDICARE, MEDICAID ==
[~2025-05-02] VITALS: Ht 157.5 cm; Wt 55.8 kg
[~2025-05-02 21:21] MED LIST changes: -QUET200T PO; +RISP0.5T39 PO
[2025-05-03] MEDS ORDERED: LORazepam 2 MG/ML VIAL ONE (00:22)
[2025-05-03] MEDS: LORazepam 2 MG/ML VIAL IM ONE (00:39)
[2025-05-03] MEDS ORDERED: ALBUTEROL SULFATE HFA 90 MCG/PUFF 8 GM INHALER IH PRN (05:15)
[2025-05-03] MEDS ORDERED: MAGNESIUM HYDROXIDE SUSPENSION 30 ML UDCUP PO PRN (05:15)
[2025-05-03] MEDS ORDERED: LOPERAMIDE HCL 2 MG CAPSULE PO PRN (05:15)
[2025-05-03] MEDS ORDERED: PETROLATUM,WHITE 28 GM JELLY TP PRN (05:15)
[2025-05-03] MEDS ORDERED: OMEPRAZOLE 20 MG CAPSULE PO PRN (05:15)
[2025-05-03] MEDS ORDERED: MAG HYDROX/ALUMINUM HYD/SIMETH ES 30 ML SUSPENSION UDCUP PO PRN (05:15)
[2025-05-03] MEDS ORDERED: BACITRACIN 28 GM OINTMENT TP PRN (05:15)
[2025-05-03] MEDS ORDERED: DOCUSATE SODIUM 100 MG CAPSULE PO PRN (05:15)
[2025-05-03 08:23] VITALS: BP 141/75; PULSE 64; RESP 18; TEMP 96.8; O2SAT 95
[2025-05-04] MEDS: ACETAMINOPHEN 325 MG TABLET PO PRN (05:39)
[2025-05-04 08:40] VITALS: BP 146/98; PULSE 95; RESP 17; TEMP 98.2; O2SAT 97
[2025-05-04 13:50] VITALS: RESP 17
[2025-05-04 14:42] VITALS: RESP 16
[2025-05-04 15:46] VITALS: RESP 18; TEMP 98
[2025-05-04 19:48] VITALS: RESP 17
[2025-05-04 20:48] VITALS: RESP 15
[2025-05-05] MEDS: IBUPROFEN 600 MG TABLET PO PRN (03:46)
[2025-05-05 03:47] VITALS: BP 188/116; PULSE 83; RESP 18; TEMP 98; O2SAT 100
[2025-05-05 04:47] VITALS: BP 152/67
[2025-05-05 14:20] VITALS: RESP 17
[2025-05-05 15:20] VITALS: RESP 16
[2025-05-05 20:11] VITALS: RESP 18
[2025-05-06] VITALS (9 sets, daily range): BP systolic 140–146; BP diastolic 85; PULSE 69–73; RESP 17–18; TEMP 97.8–98.4; O2SAT 99
[2025-05-07 04:10] VITALS: BP 134/84; PULSE 65; RESP 18; TEMP 97.5; O2SAT 97
[2025-05-07 09:00] VITALS: BP 136/72; PULSE 62; RESP 19; TEMP 98.2; O2SAT 100
[2025-05-07 20:33] VITALS: BP 135/75; PULSE 74; RESP 17; TEMP 97.7; O2SAT 99
[2025-05-08 08:40] VITALS: BP 139/92; PULSE 64; RESP 17; TEMP 98.2; O2SAT 100
[2025-05-08 10:19] LABS: APPEARANCE,URINE CLEAR (CLEAR); GLUCOSE, URINE (UA) NEGATIVE (NEGATIVE); LEUKOCYTE ESTERASE ,URINE NEGATIVE (NEGATIVE); NITRATE,URINE NEGATIVE (NEGATIVE); OCCULT BLOOD,URINE NEGATIVE (NEGATIVE); PH,URINE DRUG SCREEN 5.5 (5.0-8.0); SPECIFIC GRAVITIY, URINE 1.020 (1.003-1.030)
[2025-05-08 10:31] LABS: ALCOHOL, URINE DRUG SCREEN NEGATIVE (NEGATIVE); AMPHET/METH SCREEN,URINE NEGATIVE (NEGATIVE); BARBITURATE SCREEN, URINE NEGATIVE (NEGATIVE); CANNABINOID SCREEN,URINE NEGATIVE (NEGATIVE); COCAINE SCREEN,URINE NEGATIVE (NEGATIVE); METHADONE SCREEN, URINE NEGATIVE (NEGATIVE)
[2025-05-08 18:36] VITALS: RESP 17
[2025-05-08 19:31] VITALS: RESP 17
[2025-05-08 20:29] VITALS: RESP 17
[2025-05-08 20:31] VITALS: RESP 16
[2025-05-09 08:29] VITALS: RESP 17
[2025-05-09 20:00] VITALS: BP 143/70; PULSE 74; RESP 18; TEMP 97.5
[2025-05-10 09:28] VITALS: RESP 18
[2025-05-10 22:14] VITALS: RESP 18
[2025-05-11 09:16] VITALS: RESP 18
[2025-05-11 10:23] VITALS: RESP 18
[2025-05-11 11:23] VITALS: RESP 18
[2025-05-11] MEDS: CHLORHEXIDINE GLUCONATE 0.12% 15 ML UDCUP ORAL RINSE PO SCH (12:53)
[2025-05-11] MEDS: BENZOCAINE/MENTHOL/ZINC CL 20% 11.9 GM GEL TP PRN (20:36)
[2025-05-12 08:26] VITALS: RESP 17
[2025-05-12 22:51] VITALS: RESP 18
[2025-05-13 14:42] VITALS: BP 100/60; RESP 18; TEMP 98
[2025-05-13 22:17] VITALS: RESP 18
[2025-05-14 08:28] VITALS: RESP 17
[2025-05-14 21:01] VITALS: BP 139/67; PULSE 62; RESP 18; TEMP 98.2; O2SAT 97
[2025-05-14 22:01] VITALS: RESP 18
[2025-05-15 08:29] VITALS: RESP 17
[2025-05-16 09:44] VITALS: RESP 16
[2025-05-16 17:57] VITALS: RESP 17
[2025-05-16 18:57] VITALS: RESP 16
[2025-05-17 02:48] VITALS: BP 140/88; PULSE 56; RESP 18; TEMP 97.4; O2SAT 99
[2025-05-17 09:46] VITALS: RESP 16
[2025-05-17 11:10] VITALS: RESP 17
[2025-05-17 12:10] VITALS: RESP 16
[2025-05-18 08:59] VITALS: RESP 18
[2025-05-18 22:21] VITALS: BP 145/73; PULSE 69; RESP 18
[2025-05-19 08:33] VITALS: RESP 18
[2025-05-19] MEDS: LITHIUM CARBONATE 300 MG CAPSULE PO SCH (09:00)
[2025-05-19] MEDS: DIVALPROEX SODIUM 500 MG DR TABLET PO SCH (09:00)
[2025-05-19 20:18] VITALS: RESP 18
[2025-05-19] MEDS: ZOLPIDEM TARTRATE 10 MG TABLET PO PRN (20:51)
[2025-05-20 08:30] VITALS: RESP 17
[2025-05-20 22:09] VITALS: BP 137/79; PULSE 65; RESP 18; TEMP 97.8
[2025-05-21 08:32] VITALS: RESP 17
[2025-05-21 20:42] VITALS: BP 156/82; PULSE 67; RESP 17; TEMP 97.6; O2SAT 96
[2025-05-22 02:26] VITALS: BP 183/96; PULSE 63; RESP 18; TEMP 97.4
[2025-05-22 04:51] VITALS: RESP 20
[2025-05-22] MEDS: BENZOCAINE/MENTHOL [CEPACOL] LOZENGE PO PRN (18:46)
[2025-05-22] MEDS: ONDANSETRON 4 MG TABLET PO PRN (21:02)
[2025-05-22 21:09] VITALS: BP 143/102; PULSE 75; RESP 20; TEMP 98.6
[2025-05-23 08:40] VITALS: BP 130/87; PULSE 93; RESP 18; TEMP 97.8; O2SAT 99
[2025-05-23 09:20] VITALS: RESP 17
[2025-05-23 10:20] VITALS: RESP 16
[2025-05-23 16:38] VITALS: RESP 17
[2025-05-23 17:38] VITALS: RESP 16
[2025-05-23 20:06] VITALS: BP 166/83; PULSE 70; RESP 17; TEMP 97.7; O2SAT 99
[2025-05-24] MEDS ORDERED: TUBERCULIN, PURIFIED PROTEIN DERIVATIVE 5 TU/0.1 ML SYRINGE ID ONE (05:00)
[2025-05-24 08:26] VITALS: RESP 17
[2025-05-24 15:45] VITALS: BP 126/66; PULSE 68; RESP 18; O2SAT 98
[2025-05-24 16:42] VITALS: RESP 18
[2025-05-24 22:27] VITALS: BP 149/72; PULSE 62; RESP 18
[2025-05-24 23:27] VITALS: RESP 16
[2025-05-24 23:50] VITALS: RESP 18
[2025-05-25 00:54] VITALS: RESP 16
[2025-05-25 08:10] VITALS: RESP 18
[2025-05-25 09:10] VITALS: RESP 18
[2025-05-25 14:34] VITALS: RESP 18
[2025-05-25 15:34] VITALS: RESP 18
[2025-05-26 04:01] VITALS: RESP 18
[2025-05-26 22:41] VITALS: BP 158/70; PULSE 61; RESP 18; O2SAT 98
[2025-05-27] VITALS (8 sets, daily range): BP systolic 145; BP diastolic 70; PULSE 62; RESP 17–19; O2SAT 98–100
[2025-05-27] MEDS: RisperiDONE ER SUSPENSION 100 MG/0.28 ML PRE-FILLED SYRINGE SQ SCH (16:39)
[2025-05-28 08:25] VITALS: RESP 17
[2025-05-28 20:17] VITALS: RESP 18
[2025-05-29 08:22] VITALS: RESP 16
[2025-05-31 08:15] VITALS: RESP 16
[2025-05-31 20:14] VITALS: RESP 18
[2025-06-01] VITALS (8 sets, daily range): BP systolic 136–155; BP diastolic 72–80; PULSE 84–88; RESP 16–18; TEMP 97.1; O2SAT 99
[2025-06-02 08:27] VITALS: RESP 17
[2025-06-02] MEDS: BENZOCAINE/MENTHOL [CEPACOL] LOZENGE PO PRN (09:43)
[2025-06-02] MEDS ORDERED: RisperiDONE ER SUSPENSION 100 MG/0.28 ML PRE-FILLED SYRINGE SQ ONE (09:45)
[2025-06-02] MEDS: RisperiDONE MICROSPHERES 50 MG/2 ML SYRINGE IM ONE (16:00)
[2025-06-03 18:37] VITALS: RESP 18
[2025-06-03 20:26] VITALS: BP 134/62; PULSE 65; RESP 19; TEMP 98; O2SAT 100
[2025-06-04 20:12] VITALS: BP 141/71; PULSE 65; RESP 18; TEMP 97.5; O2SAT 100
[2025-06-05 09:32] VITALS: BP 146/90; PULSE 62; RESP 18; TEMP 97.3; O2SAT 98
[2025-06-05 20:22] VITALS: RESP 18
[2025-06-06 12:03] VITALS: RESP 19
[2025-06-06 20:15] VITALS: RESP 17
[2025-06-07 20:26] VITALS: BP 115/97; PULSE 65; RESP 17; TEMP 97.8; O2SAT 100
[2025-06-08 20:16] VITALS: BP 139/88; PULSE 72; RESP 18; TEMP 98.2; O2SAT 96
[2025-06-09 08:15] VITALS: BP 126/85; PULSE 64; RESP 18; TEMP 98.2; O2SAT 95
[2025-06-09 20:29] VITALS: BP 144/77; PULSE 76; RESP 18; TEMP 97.9; O2SAT 97
[2025-06-10 08:20] VITALS: BP 135/66; PULSE 70; RESP 17; TEMP 98.3; O2SAT 100
[2025-06-10 11:05] VITALS: RESP 17
[2025-06-10 12:05] VITALS: RESP 17
[2025-06-10 14:57] VITALS: RESP 17
[2025-06-10 15:57] VITALS: RESP 17
[2025-06-10 20:10] VITALS: BP 135/86; PULSE 73; RESP 18; TEMP 98.6; O2SAT 98
[2025-06-11 05:23] VITALS: BP 135/62; PULSE 75; RESP 18; TEMP 98.3; O2SAT 99
[2025-06-11 06:19] VITALS: RESP 17
[2025-06-11 08:17] VITALS: BP 134/74; PULSE 67; RESP 16; TEMP 98.4; O2SAT 99
[2025-06-11 20:21] VITALS: RESP 17
[2025-06-12 08:18] VITALS: BP 135/82; PULSE 81; RESP 16; TEMP 98.2; O2SAT 98
[2025-06-12 20:20] VITALS: RESP 18
[2025-06-12 20:21] VITALS: BP 137/70; PULSE 80; RESP 18; TEMP 97.8; O2SAT 98
[2025-06-13 08:20] VITALS: BP 140/86; PULSE 63; RESP 16; TEMP 97.5; O2SAT 99
[2025-06-13 20:21] VITALS: BP 104/93; PULSE 82; RESP 17; TEMP 97.2; O2SAT 98
[2025-06-14 08:29] VITALS: BP 136/79; PULSE 96; RESP 19; TEMP 97.8; O2SAT 98
[2025-06-14 20:08] VITALS: BP 111/95; PULSE 76; RESP 18; TEMP 99; O2SAT 98
[2025-06-14 22:00] VITALS: BP 114/78; PULSE 77; RESP 18; TEMP 97.5; O2SAT 95
[2025-06-15 08:20] VITALS: RESP 19
[2025-06-16 08:14] VITALS: BP 134/87; PULSE 60; RESP 16; TEMP 98.4; O2SAT 99
[2025-06-16] MEDS ORDERED: RisperiDONE MICROSPHERES 50 MG/2 ML SYRINGE IM SCH (09:00)
[2025-06-16 10:10] VITALS: BP 125/85; PULSE 68; RESP 16; TEMP 98.1; O2SAT 99
[2025-06-16 11:10] VITALS: BP 121/85; PULSE 65; RESP 16; TEMP 98; O2SAT 99
[2025-06-16 18:01] VITALS: BP 112/79; PULSE 71; RESP 18
[2025-06-16 19:04] VITALS: RESP 18
[2025-06-16 20:21] VITALS: BP 113/60; PULSE 64; RESP 18; TEMP 98.2; O2SAT 98
[2025-06-17] VITALS (7 sets, daily range): BP systolic 124–137; BP diastolic 62–78; PULSE 64–92; RESP 17–18; TEMP 97.7–98.3; O2SAT 98–99
[2025-06-18 08:23] VITALS: BP 145/70; PULSE 58; RESP 18; TEMP 98; O2SAT 100
[2025-06-18 09:29] LABS: PLATELET COUNT (AUTO) 280 K/uL (150-450); RED BLOOD CELL COUNT(AUTO) 3.79 MIL/uL (4.00-5.20); RED CELL DISTRIBUTION WIDTH 13.8 % (11.5-14.5); WHITE BLOOD COUNT (AUTO) 5.8 K/uL (4.5-11.0)
[2025-06-18 12:31] LABS: ASPARTATE AMINOTRANSFERASE 23 U/L (15-37); CALCIUM, TOTAL 8.7 mg/dL (8.8-10.5); CHOL/HDL RATIO 3.4 (3.9-5.7); CREATININE 0.66 mg/dL (0.60-1.30); GLOMERULAR FILTR. RATE CALC > 60 mL/min (>60); GLUCOSE,RANDOM 83 mg/dL (70-110); LDL CHOL (CALC.) 152 mg/dL (0-130); PHOSPHORUS 3.3 mg/dL (2.5-4.9); SODIUM SERUM 141 mmol/L (136-145); TOTAL PROTEIN, SERUM 6.7 g/dL (6.4-8.2); UREA NITROGEN, BLOOD 22 mg/dL (7-18)
[2025-06-18 23:52] VITALS: RESP 18
[2025-06-19] MEDS ORDERED: RISP100S SQ (08:01)
[2025-07-03] MEDS ORDERED: RisperiDONE ER SUSPENSION 125 MG/0.35 ML PRE-FILLED SYRINGE SQ SCH (09:00)
== END 2025-06-19 09:03 | disposition home or self-care (01) | DRG 885 ==
LOC: B2X 23:17
PROVIDERS: ADMIT Psychiatry & Neurology Child & Adolescent Psychiatry; ATTEND Psychiatry & Neurology Child & Adolescent Psychiatry
PROC: GZHZZZZ Group Psychotherapy (ICD-10-PCS; principal; 2025-05-02)
PROC: GZ52ZZZ Individual Psychotherapy, Cognitive (ICD-10-PCS; 2025-05-02)
PROC: GZ56ZZZ Individual Psychotherapy, Supportive (ICD-10-PCS; 2025-05-02)
DX: F25.0 Schizoaffective disorder, bipolar type (principal); Z59.00 Homelessness unspecified; E03.9 Hypothyroidism, unspecified; E78.5 Hyperlipidemia, unspecified; F41.9 Anxiety disorder, unspecified; F84.0 Autistic disorder; G47.00 Insomnia, unspecified; K21.9 Gastro-esophageal reflux disease without esophagitis; K59.00 Constipation, unspecified; J44.9 Chronic obstructive pulmonary disease, unspecified; R45.850 Homicidal ideations; Z60.8 Other problems related to social environment; Z87.891 Personal history of nicotine dependence; Z91.148 Patient's other noncompliance with medication regimen for other reason
CPT/HCPCS: 71046; 80053; 80061; 80307; 81003; 83036; 83735; 84100; 84443; 85025; J1200; J1630; J2060; J2794; Q0162; 36415-L1; 36415-TC

== ENCOUNTER 2025-08-06 11:05 | Emergency (ER) | payer MEDICARE, OTHER ==
[~2025-08-06] VITALS: Ht 160 cm; Wt 54.0 kg
[~2025-08-06 11:05] MED LIST changes: -RISP0.5T39 PO; +RISP100S SQ
[2025-08-06] MEDS: KETOROLAC TROMETHAMINE 30 MG/ML VIAL IM ONE (14:15)
[2025-08-06] MEDS: LIDOCAINE 5% TRANSDERMAL PATCH TD ONE (14:16)
[2025-08-06 14:22] VITALS: BP 179/73; PULSE 84; RESP 18; TEMP 98.2; O2SAT 100
== END 2025-08-06 14:51 | disposition home or self-care (01) ==
LOC: EMS 11:07
DX: S16.1XXA Strain of muscle, fascia and tendon at neck level, initial encounter (principal); E78.00 Pure hypercholesterolemia, unspecified; F20.9 Schizophrenia, unspecified; F32.A Depression, unspecified; F10.90 Alcohol use, unspecified, uncomplicated; M79.671 Pain in right foot; M79.672 Pain in left foot; Z79.899 Other long term (current) drug therapy; X58.XXXA Exposure to other specified factors, initial encounter; Y93.89 Activity, other specified; Y92.89 Other specified places as the place of occurrence of the external cause; Y99.8 Other external cause status; Y90.9 Presence of alcohol in blood, level not specified
CPT/HCPCS: 99283; 96372; J1885